=== PATIENT | female | born 1985 | race Caucasian/White ===

== ENCOUNTER 2021-04-05 06:17 | Emergency (ER) | payer BC, SELFPAY ==
[2021-04-05 06:26] VITALS: BP 123/81; PULSE 79; RESP 18; TEMP 36.6; O2SAT 97
[2021-04-05 07:06] LABS: Add Urine Microscopic? YES; Appearance Urine Cloudy (Clear); Bilirubin Urine Negative (Negative); Blood Urine 3+ (Negative); Color Urine Yellow (Yellow); Glucose Urine UA Negative (Negative); Ketones Urine Negative (Negative); Leukocyte Esterase Ur 3+ LEU/UL (Negative); Mucus Urine Rare /lpf; Nitrate Urine Negative (Negative); Protein Urine 2+ mg/dL (Negative); RBC Urine >75 /hpf (0-2); Specific Grav Ur 1.019 (1.001-1.035); Squamous Epithelial Cell Urine Few /hpf (Few); WBC Clumps Urine Present /HPF; WBC Urine >75 /hpf
--- NOTE | 2021-04-05 07:09 | ED.FEMALEGU ---
HPI - Female Genitourinary General Chief complaint: Urogenital-Female Stated complaint: hematuria Time Seen by Provider: 04/05/21 07:06 Source: patient Mode of arrival: ambulatory Limitations: no limitations History of Present Illness HPI Narrative: The patient is a 35 F with a history of UTI, presenting for evaluation of dysuria. Patient reports onset of dysuria, frequency, hematuria, suprapubic pressure last night. Patient reports nausea without vomiting. No fever, chills, flank pain. No history of nephrolithiasis. No vaginal discharge or other bleeding. Patient does have a history of urinary tract infection, states it usually occurs after intercourse. No recent intercourse. Patient reports pressure-like pain in the suprapubic region without radiation. No radiation of the pain to the upper abdomen. Last dose of Tylenol and ibuprofen for the patient was overnight. Related Data Home Medications Medication Instructions Recorded Confirmed methadone 39 mg PO DAILY 04/05/21 04/05/21 Allergies Allergy/AdvReac Type Severity Reaction Status Date / Time Sulfa (Sulfonamide Allergy Mild Difficulty Verified 04/05/21 06:31 Antibiotics) Breathing SULFA Allergy Intermediate Difficulty Uncoded 04/05/21 06:31 Breathing Review of Systems Review of Systems: CONSTITUTIONAL: Denies fever CARDIOVASCULAR: Denies chest pain RESPIRATORY: Denies cough or dyspnea. GASTROINTESTINAL: Denies abdominal pain, reports suprapubic pressure : Reports dysuria, frequency, hematuria SKIN: Denies rash MUSCULOSKELETAL: Denies back pain NEUROLOGIC: Denies headache [facility] Social History Social History (Updated 04/05/21 @ 07:29 by Alyssia Ann MD) Smoking status: Current every day smoker Tobacco type: cigarettes Alcohol intake: current Substance use: never Gender identity (if verbalized by the patient): Female Exam Narrative: GENERAL: Awake, alert, conversant HEAD: Normocephalic, atraumatic. EYES: PERRLA and EOMI. ENT: Nares clear, no rhinorrhea or epistaxis. Mucous membranes moist. NECK: Supple. CHEST: No respiratory distress, breathing even and non labored HEART: Regular rate, sinus rhythm ABDOMEN:Non distended, non tender, mild suprapubic pressure without guarding, rebound, rigidity EXTREMITIES: Normal range of motion. No edema. SKIN: Warm, dry, no rash. NEURO:No focal deficits. Alert and oriented x3 Course Vital Signs Vital signs: Vital Signs Temperature 36.6 C 04/05/21 06:26 Pulse Rate 79 04/05/21 06:26 Respiratory Rate 18 04/05/21 06:26 Blood Pressure 123/81 04/05/21 06:26 Pulse Oximetry 97 04/05/21 06:26 Temperature 36.6 C 04/05/21 06:26 Pulse Rate 79 04/05/21 06:26 Respiratory Rate 18 04/05/21 06:26 Blood Pressure 123/81 04/05/21 06:26 Pulse Oximetry 97 04/05/21 06:26 MDM - Female Genitourinary MDM Narrative Medical decision making narrative: Patient presenting for evaluation of dysuria, hematuria, frequency. At the time of assessment, ABCs are intact and vital signs are stable. Physical exam is notable for mild suprapubic pressure without rebound or guarding. No flank tenderness. No fever, chills, flank pain, tachycardia, hypotension to be suggestive of sepsis, or pyelonephritis clinically. Patient has no known history of nephrolithiasis and pain does not seem consistent with this diagnosis. Urinalysis is consistent with urinary tract infection. Her presentation does seem most consistent with simple UTI. Will treat with antibiotic, Pyridium, pain medication. She was advised PCP follow-up and close return precautions. She was then discharged home given absence of other findings. Differential Diagnosis Differential diagnosis: Likely urinary tract infection, bacterial vaginosis, trichomoniasis and cervicitis Lab Data Labs: Lab Results 04/05/21 Range/Units 06:37 Urine Color Yellow (Yellow) Urine Appearance Cloudy H (Clear) Urine pH 6.0 (5.0-
== END 2021-04-05 07:40 | disposition home or self-care (01) ==
PROVIDERS: Emergency Medicine; Emergency Provider Emergency Medicine
DX: R30.0 Dysuria (principal); R82.998 Other abnormal findings in urine; F17.210 Nicotine dependence, cigarettes, uncomplicated
CPT/HCPCS: 81001; 81025; 87077; 87086; 87088; 99283